=== PATIENT | female | born 1995 | race Caucasian/White ===

== ENCOUNTER 2017-02-18 14:47 | Emergency (ER) | payer BC, MEDICAID ==
[2017-02-18] MEDS ORDERED: ONDANSETRON 4 MG ODT TAB ONE (15:24)
[2017-02-18] MEDS ORDERED: IBUPROFEN 200 MG TABLET ONE (15:24)
== END 2017-02-18 15:38 | disposition home or self-care (01) ==
LOC: ED 14:47
DX: J11.1 Influenza due to unidentified influenza virus with other respiratory manifestations (principal)
CPT/HCPCS: 99283 ×2; A9270 ×2